=== PATIENT | female | born 1980 | race Caucasian/White ===

== ENCOUNTER 2017-01-02 15:06 | Inpatient (IN) | payer OTHER ==
[2017-01-02] MEDS ORDERED: PEPCID PO ONE (15:14)
[2017-01-02] MEDS ORDERED: LR 500 ML IV ONE (15:14)
[2017-01-02] MEDS ORDERED: ZOFRAN IV PRN (15:14)
[2017-01-02] MEDS ORDERED: TYLENOL PO PRN (15:14)
[2017-01-02] MEDS ORDERED: STADOL IV PRN ×2 (15:14→19:20)
[2017-01-02] MEDS ORDERED: REGLAN PO ONE (15:14)
[2017-01-02] MEDS ORDERED: PEPCID IV PRN (15:14)
[2017-01-02] MEDS ORDERED: KEFZOL 1 GM/D5W 50 ML IV PRN (15:14)
[2017-01-02] MEDS ORDERED: PEPCID PO PRN (15:14)
[2017-01-02] MEDS ORDERED: PITOCIN 30 UNITS/LR 500 ML IV SCH (15:15)
[2017-01-02] MEDS ORDERED: SODIUM CHLORIDE 0.9% INJ SCH (15:15)
[2017-01-02 16:53] LABS: URINE SOURCE VOIDED
[2017-01-02 16:54] LABS: BILIRUBIN URINE NEGATIVE (NEGATIVE); BLOOD URINE NEGATIVE (NEGATIVE); CLARITY CLEAR (CLEAR); COLOR YELLOW; GLUCOSE URINE NEGATIVE (NEGATIVE); LEUKOCYTES URINE NEGATIVE (NEGATIVE); NITRITE URINE NEGATIVE (NEGATIVE); PROTEIN URINE NEGATIVE (NEGATIVE); UROBILINOGEN URINE NORMAL
[2017-01-02 17:06] LABS: UR AMPHETAMINES QUAL NONE DETECTED (NONE DETECT); UR BARBITUATES QUAL NONE DETECTED (NONE DETECT)
[2017-01-02 17:07] LABS: UR BENZODIAZEPIN QUAL PRESUMPTIVE POSITIVE (NONE DETECT); UR CANNABINOIDS QUAL NONE DETECTED (NONE DETECT); UR COCAINE QUAL NONE DETECTED (NONE DETECT); UR MDMA QUAL NONE DETECTED (NONE DETECT); UR METHADONE QUAL NONE DETECTED (NONE DETECT); UR METHAMPHETAMINE QUAL NONE DETECTED (NONE DETECT); UR OPIATES QUAL NONE DETECTED (NONE DETECT); UR OXYCODONE QUAL NONE DETECTED (NONE DETECT); UR PCP QUAL NONE DETECTED (NONE DETECT); UR TCA QUAL NONE DETECTED (NONE DETECT)
[2017-01-02 17:47] LABS: MANUAL DIFF NEEDED? NO
[2017-01-02 17:49] LABS: BASO% 0.2 % (0.0-0.8); EOS# 0.11 X1000 (0.0-0.7); EOS% 0.8 % (0.0-10.0); HEMATOCRIT 34.6 % (37.0-47.0); HEMOGLOBIN 11.3 g/dL (12.0-16.0); IMM GRAN# 0.04 X1000 (0.0-0.04); IMM GRAN% 0.3 % (0.0-0.5); LYMPH# 2.65 X1000 (1.2-3.4); MCH 29.3 PG (27-31); MCHC 32.7 g/dL (33-37); MCV 89.6 FL (81-99); MONO# 0.66 X1000 (0.11-0.59); MPV 12.5 FL (7.4-10.4); NEUT% 73.7 % (42.2-75.2); PLT 105 X1000 (130-400); RBC 3.86 XMIL (4.2-5.4)
[2017-01-02] MEDS ORDERED: SODIUM CHLORIDE 0.9% INJ PRN (19:17)
[2017-01-02] MEDS ORDERED: PHENERGAN IV PRN (19:17)
[2017-01-02] MEDS ORDERED: BRETHINE SUBQ PRN (19:20)
[2017-01-02] MEDS ORDERED: AMBIEN PO PRN (19:20)
[2017-01-02] MEDS: LR 1,000 ML IV SCH (21:00)
[2017-01-02] MEDS ORDERED: AMPICILLIN 2 GM/NS 100 ML IV ONE (21:38)
[2017-01-02] MEDS ORDERED: CYTOTEC PO ONE (22:00)
[2017-01-03] MEDS: AMPICILLIN 1 GM/NS 50 ML IV SCH ×5 (02:20→16:00)
[2017-01-03] MEDS: CYTOTEC PO SCH ×2 (02:22→07:19)
[2017-01-03] MEDS: LR 1,000 ML IV SCH ×3 (03:00→19:13)
[2017-01-03] MEDS ORDERED: MARCAINE 0.25% PF ONE (09:30)
[2017-01-03] MEDS ORDERED: FENTANYL-BUPIV-NS 2 MCG-0.1% 200 ML ONE (09:30)
[2017-01-03] MEDS ORDERED: FENTANYL-BUPIV-NS 2 MCG-0.1% 200 ML EPIDURAL PRN (09:31)
[2017-01-03] MEDS ORDERED: MARCAINE 0.25% PF INJ ONE (09:45)
[2017-01-03] MEDS ORDERED: PEPCID ONE (19:36)
[2017-01-03] MEDS ORDERED: KEFZOL 1 GM/D5W 50 ML ONE (19:36)
[2017-01-03] MEDS ORDERED: BICITRA ONE (19:36)
[2017-01-03] MEDS ORDERED: REGLAN ONE (19:58)
[2017-01-03] MEDS ORDERED: VERSED ONE (20:09)
[2017-01-03] MEDS ORDERED: BENADRYL ONE (20:09)
[2017-01-03] MEDS ORDERED: TORADOL ONE (20:09)
[2017-01-03] MEDS ORDERED: PITOCIN ONE ×2 (20:10→20:11)
[2017-01-03] MEDS ORDERED: ZOFRAN ONE (20:10)
[2017-01-03] MEDS ORDERED: DURAMORPH ONE (20:10)
[2017-01-03] MEDS ORDERED: HEMABATE ONE (20:11)
[2017-01-03] MEDS ORDERED: LR 1,000 ML ONE (20:11)
[2017-01-03] MEDS ORDERED: XYLOCAINE-MPF 2% ONE (20:11)
[2017-01-03] MEDS ORDERED: METHERGINE ONE (20:11)
[2017-01-03] MEDS ORDERED: LR ONE (20:11)
[2017-01-03] MEDS ORDERED: FENTANYL ONE (20:18)
[2017-01-03] MEDS ORDERED: DECADRON ONE (21:09)
[2017-01-03] MEDS ORDERED: EPHEDRINE ONE (21:09)
[2017-01-03] MEDS ORDERED: M-M-R II VACCINE SUBQ ONE ×2 (21:18→21:21)
[2017-01-03] MEDS ORDERED: DEMEROL PO PRN ×4 (21:18→21:21)
[2017-01-03] MEDS ORDERED: MYLICON PO PRN ×2 (21:18→21:21)
[2017-01-03] MEDS ORDERED: PHENERGAN IM PRN ×2 (21:18→21:21)
[2017-01-03] MEDS ORDERED: BOOSTRIX VACCINE IM ONE ×2 (21:18→21:21)
[2017-01-03] MEDS ORDERED: PITOCIN 20 UNITS/LR 1,000 ML IV ONE ×2 (21:18→21:21)
[2017-01-03] MEDS ORDERED: NORCO-10 PO PRN ×2 (21:18→21:21)
[2017-01-03] MEDS ORDERED: DEMEROL IM PRN ×2 (21:18→21:21)
[2017-01-03] MEDS ORDERED: AMBIEN PO PRN ×2 (21:18→21:21)
[2017-01-03] MEDS ORDERED: CYTOTEC PO PRN ×2 (21:18→21:21)
[2017-01-03] MEDS ORDERED: NORCO-5 PO PRN (21:18)
[2017-01-03] MEDS ORDERED: DULCOLAX PR PRN ×2 (21:18→21:21)
[2017-01-03] MEDS ORDERED: HYDROXYZINE IM PRN ×2 (21:18→21:21)
[2017-01-03] MEDS ORDERED: HYDROXYZINE PO PRN ×2 (21:18→21:21)
[2017-01-03] MEDS ORDERED: PITOCIN IM PRN ×2 (21:18→21:21)
[2017-01-03] MEDS ORDERED: MOTRIN PO PRN (21:18)
[2017-01-03] MEDS ORDERED: PITOCIN 10 UNITS/LR 1,000 ML IV SCH (21:30)
[2017-01-03 22:42] LABS: BASO% 0.1 % (0.0-0.8); EOS# 0.01 X1000 (0.0-0.7); HEMATOCRIT 32.8 % (37.0-47.0); HEMOGLOBIN 10.8 g/dL (12.0-16.0); IMM GRAN# 0.15 X1000 (0.0-0.04); IMM GRAN% 0.5 % (0.0-0.5); LYMPH# 1.43 X1000 (1.2-3.4); LYMPH% 4.5 % (20.5-51.1); MANUAL DIFF NEEDED? YES; MCH 29.9 PG (27-31); MCHC 32.9 g/dL (33-37); MCV 90.9 FL (81-99); MONO# 1.13 X1000 (0.11-0.59); MONO% 3.6 % (1.7-9.3); MPV 12.1 FL (7.4-10.4); NEUT% 91.3 % (42.2-75.2); PLT 140 X1000 (130-400); RBC 3.61 XMIL (4.2-5.4)
[2017-01-03] MEDS ORDERED: BENADRYL IV PRN (23:04)
[2017-01-03] MEDS ORDERED: ZOFRAN IV PRN ×2 (23:04)
[2017-01-03] MEDS ORDERED: ZOFRAN ODT PO PRN (23:04)
[2017-01-03] MEDS ORDERED: NARCAN INJ PRN (23:04)
[2017-01-03] MEDS ORDERED: DILAUDID IV PRN (23:05)
[2017-01-03] MEDS: SUBUTEX SL SCH (23:46)
[2017-01-03 23:51] LABS: BANDS 4 % (0-1); LYMPHS 5 % (21-51)
[2017-01-04] MEDS ORDERED: DILAUDID IV PRN (00:36)
--- NOTE | 2017-01-04 06:08 | HISTORY AND PHYSICAL ---
HPI: Patient is a 36-year-old G1 with intrauterine at 40 weeks and 3 days who presented to labor and delivery last night for induction of labor. She received Cytotec and Pitocin despite approximately 24 hours patient without progression beyond 3 cm so decision made to proceed to the operating room for primary abdominal delivery. PAST MEDICAL HISTORY: History of polycystic ovarian syndrome, history of anxiety, depression, history of substance abuse. PAST SURGICAL HISTORY: Tonsillectomy, gastric bypass and oral surgery. OB HISTORY, SUPERVISING APPRAISER HISTORY: Noncontributory. FAMILY HISTORY: History of hypertension, diabetes in her mother. PHYSICAL EXAMINATION: VITAL SIGNS: Patient afebrile. Vital signs stable. GENERAL: Patient no acute distress. LUNGS: Respirations nonlabored. ABDOMEN: Soft, gravid, nontender palpation. : Cervix 3 cm dilated. ASSESSMENT AND PLAN: A 36-year-old 1 with intrauterine at 40 weeks and 3 days. Will proceed to operating room for primary abdominal delivery. Discussed with patient. MTDD
[2017-01-04 06:09] LABS: HEMATOCRIT 31.2 % (37.0-47.0); MCH 28.8 PG (27-31); MCHC 32.1 g/dL (33-37); MCV 89.9 FL (81-99); MPV 12.1 FL (7.4-10.4); RBC 3.47 XMIL (4.2-5.4)
[2017-01-04] MEDS ORDERED: MYLICON PO SCH (09:00)
[2017-01-04] MEDS: PITOCIN 10 UNITS/LR 1,000 ML IV SCH ×2 (09:16→09:17)
[2017-01-04] MEDS ORDERED: PRILOSEC PO ONE (09:51)
[2017-01-04] MEDS: ZOLOFT PO SCH (10:25)
[2017-01-04] MEDS: SUBUTEX SL SCH ×2 (11:41→21:00)
[2017-01-04] MEDS: MYLICON PO SCH ×2 (11:41→22:19)
[2017-01-04] MEDS ORDERED: TORADOL IV PRN (12:09)
[2017-01-04] MEDS: AMPICILLIN 1 GM/NS 50 ML IV SCH ×2 (12:31→12:32)
[2017-01-04] MEDS: LR 1,000 ML IV SCH (12:34)
[2017-01-04] MEDS: KLONOPIN PO SCH (12:34)
[2017-01-04] MEDS ORDERED: NEOSPORIN OINTMENT PACKET TOP ONE (18:44)
[2017-01-04] MEDS ORDERED: MINERAL OIL ONE (19:13)
[2017-01-04] MEDS: PERICOLACE PO SCH (21:00)
[2017-01-04] MEDS ORDERED: PERICOLACE PO SCH (21:00)
[2017-01-04] MEDS: MOTRIN PO PRN (21:00)
[2017-01-04] MEDS ORDERED: LR 1,000 ML IV SCH ×2 (21:18→21:21)
[2017-01-05] MEDS ORDERED: PRILOSEC PO SCH (08:00)
[2017-01-05] MEDS: SUBUTEX SL SCH ×2 (08:50→20:23)
[2017-01-05] MEDS: KLONOPIN PO SCH (08:53)
[2017-01-05] MEDS: ZOLOFT PO SCH (08:54)
[2017-01-05] MEDS: MOTRIN PO PRN ×2 (08:56→17:42)
[2017-01-05] MEDS: MYLICON PO SCH ×5 (09:56→20:09)
[2017-01-05] MEDS: PERICOLACE PO SCH (20:09)
[2017-01-05] MEDS ORDERED: POLYSPORIN OINTMENT TOP SCH (21:00)
[2017-01-05] MEDS: NORCO-5 PO PRN (23:25)
[2017-01-06] MEDS ORDERED: PRILOSEC PO SCH (07:00)
[2017-01-06] MEDS: SUBUTEX SL SCH ×2 (07:28→10:17)
[2017-01-06] MEDS: MOTRIN PO PRN (07:28)
[2017-01-06 08:16] VITALS: BP 142/90
[2017-01-06] MEDS: ZOLOFT PO SCH (08:18)
[2017-01-06] MEDS: KLONOPIN PO SCH (08:18)
[2017-01-06] MEDS: MYLICON PO SCH ×2 (08:19→12:59)
[2017-01-06] MEDS ORDERED: PNEUMOVAX 23 IM ONE (10:00)
[2017-01-06] MEDS ORDERED: FLUZONE QUAD 2016-2017 SYRINGE IM ONE (10:13)
[2017-01-06] MEDS: NORCO-5 PO PRN (12:59)
--- NOTE | 2017-01-07 07:26 | DISCHARGE SUMMARY ---
ADMISSION DATE: 01/02/2017 DISCHARGE DATE: 01/06/2017 PRINCIPAL DIAGNOSIS: Intrauterine at 40 plus 3. SECONDARY DIAGNOSIS: History of opiate dependence as well as benzodiazepine dependence. HOSPITAL COURSE: Patient is admitted on 01/02/2017 after spontaneous rupture of membranes. On 01/03/2017, patient was taken to the operating room for primary low transverse section secondary to failure to progress. Procedure was performed without complication. The patient was subsequently transferred to mother/baby once deemed stable where her care has remained uneventful. The patient tolerated p.o. well. Her pain is well controlled on p.o. medications. No nausea or vomiting. The patient is ambulating without assistance. The patient is stable for discharge on postoperative day #3. CONDITION ON DISCHARGE: Stable. ELIMINATION CAPACITY: Independent. FEEDING CAPACITY: Independent. LOCOMOTION CAPACITY: Independent. REHABILITATION POTENTIAL: Good. PROGNOSIS: Good. DISCHARGE MEDICATIONS: Include Percocet 10 mg 1-2 tablets p.o. q.6 hours p.r.n. pain. Patient is to resume her Subutex and Klonopin dosage. DIET: The patient is to maintain a regular diet. PHYSICAL ACTIVITY: As tolerated. Pelvic rest x6 weeks. DISCHARGE INSTRUCTIONS: The patient is ordered to call or return if fever greater than 100.4, heavy vaginal bleeding, foul smelling vaginal discharge, or any other acute changes. She is to be discharged home with orders to follow up with Dr. Simmons in 2 weeks for an incision check.
--- NOTE | 2017-02-13 08:00 | OPERATIVE NOTE ---
PROCEDURE DATE: 02/13/2017 PREOPERATIVE DIAGNOSES: 1. Intrauterine at 40 weeks 3 days. 2. Failed induction of labor. 3. History of substance abuse. POSTOPERATIVE DIAGNOSES: 1. Intrauterine at 40 weeks 3 days. 2. Failed induction of labor. 3. History of substance abuse. PROCEDURE: Primary low segment transverse section. SURGEON: Aimee Monroy MD. ANESTHESIA: Epidural. FINDINGS: Viable female infant with grossly normal uterus, bilateral fallopian tubes, and ovaries. ESTIMATED BLOOD LOSS: 600 mL. COMPLICATIONS: None. COUNTS: Correct x2. HISTORY OF PRESENT ILLNESS: The patient is a 36-year-old, G1 with intrauterine at 40 weeks and 3 days. The patient presented for induction of labor. Despite Cytotec, Pitocin, and rupture of membranes patient without progression beyond 3 cm so decision made to proceed to the operating room for primary abdominal delivery. PROCEDURE IN DETAIL: After proper informed consent was obtained, patient was taken to the operating room and placed in the dorsal supine position. With adequate epidural anesthesia, abdomen was prepped and draped in the normal sterile fashion for abdominal surgery. After a proper time-out was performed the abdomen was tested with Allis clamps and noted to be appropriately anesthetized. At this point, a low transverse incision was made on the skin using a scalpel. This was carried down to the underlying fascia which was scored in the midline. Fascial incision was extended laterally and cephalic using Theodore scissors. The inferior aspect of the fascial defect was grasped with the Jeronimo clamps and dissected off the underlying rectus abdominis muscle. Similar was carried out to the superior aspect of fascial defect. Muscles were bluntly in the midline. Peritoneum was entered bluntly and stretched using the digester operator's hand. Bladder blade was placed to protect the bladder. A low transverse incision was made on the uterus and stretched using the digester operator's hand. The infant was then delivered through a vertex presentation. Cord was doubly clamped, cut, and the handed off to the waiting pediatric staff. The placenta was then delivered via fundal massage. The uterus was exteriorized and cleared free of all clot and debris. Hysterotomy was reapproximated using #1 chromic in a running, locking fashion. Noted to be hemostatic. The uterus was then returned to the abdomen. The pericolic gutters were cleared free of all clot and debris. The hysterotomy was reinspected and noted to be hemostatic. The peritoneum was then reapproximated using 3-0 chromic in a running, continuous fashion. The muscles were then inspected and noted to be hemostatic. The fascia was then reapproximated using 1 Vicryl in a running, continuous fashion. Subcutaneous tissue was made hemostatic using Bovie electrocautery and the subcutaneous tissue was reapproximated using 3-0 chromic in a running, continuous fashion. The skin was reapproximated using 4-0 Monocryl in a subcuticular fashion. The patient tolerated the procedure well and was transferred to recovery in stable condition.
== END 2017-01-06 13:10 | disposition home or self-care (01) | DRG 765 ==
LOC: P.LD 15:06 → P.WC 01-05 17:13
PROVIDERS: ADMIT Obstetrics & Gynecology; ATTEND Obstetrics & Gynecology
PROC: 10D00Z1 Extraction of Products of Conception, Low, Open Approach (ICD-10-PCS; principal; 2017-01-03 08:30)
DX: O48.0 Post-term pregnancy (principal); F11.20 Opioid dependence, uncomplicated; Z37.0 Single live birth; O99.343 Other mental disorders complicating pregnancy, third trimester; F32.9 Major depressive disorder, single episode, unspecified; Z3A.40 40 weeks gestation of pregnancy; F41.9 Anxiety disorder, unspecified; O61.0 Failed medical induction of labor; O62.0 Primary inadequate contractions; O99.334 Smoking (tobacco) complicating childbirth; F17.210 Nicotine dependence, cigarettes, uncomplicated; Z98.84 Bariatric surgery status; Z82.49 Family history of ischemic heart disease and other diseases of the circulatory system; Z83.3 Family history of diabetes mellitus; Z79.899 Other long term (current) drug therapy; Z23 Encounter for immunization
CPT/HCPCS: 59025; 80305; 81003; 84112; 85025; 85027; 86592; 86850; 86900; 86901; 90732; J0290; J0595; J0690; J1100; J1170; J1200; J1885; J2210; J2250; J2274; J2405; J2590; J2765; J3010; J7120; Q2038; S0020; S0028